=== PATIENT | female | born 1960 | race Caucasian/White ===

== ENCOUNTER 2018-07-10 12:29 | Emergency (ER) | payer MEDICAID ==
[2018-07-10 12:36] VITALS: BP 133/45
[2018-07-10] MEDS ORDERED: PERM60CR19 TP (12:48)
[2018-07-10] MEDS ORDERED: HYDR25CA PO (12:52)
== END 2018-07-10 13:13 | disposition home or self-care (01) ==
LOC: ER 12:29
DX: B86 Scabies (principal); F17.200 Nicotine dependence, unspecified, uncomplicated; Z88.0 Allergy status to penicillin; Z79.899 Other long term (current) drug therapy
CPT/HCPCS: 99284